=== PATIENT | female | born 1965 | race Caucasian/White ===

== ENCOUNTER 2017-10-02 12:09 | Emergency (ER) | payer BC, SELFPAY ==
[~2017-10-02 12:09] MED LIST: ISOVUE-370 76%-LOCM 1 ML ONE
[2017-10-02 13:20] LABS: #Eosinphils 0.2 thou/uL (0.0-0.7); #Lymphocytes 1.5 thou/uL (1.20-3.40); #Monocytes 1.3 thou/uL (0.11-0.59); #Neutrophils 14.3 thou/uL (1.40-6.50); %Basophils 0.1 % (0.0-1.0); %Eosinophils 1.4 % (0.0-10.0); %Lymphocytes 8.9 % (21.0-51.0); %Monocytes 7.6 % (0.0-10.0); Hematocrit 49.5 % (36.0-47.0); Mean Platelet Volume 8.1 fL (7.4-10.4); Red Blood Cell (RBC) Count 5.47 mill/uL (4.20-5.40); White Blood Cell (WBC) Count 17.4 thou/uL (4.8-10.8)
[2017-10-02 13:45] LABS: ALT (SGPT) 20 U/L (8-55); AST (SGOT) 14 U/L (5-34); Alkaline Phosphatase 164 U/L (40-150); Anion Gap 12 mmol/L (10-20); BUN (Urea Nitrogen) 12 mg/dL (9.8-20.1); Bilirubin, Total 0.4 mg/dL (0.2-1.2); Calc. Creatinine Clearance 0 mL/min (70-130); Calcium 9.8 mg/dL (7.8-10.44); Carbon Dioxide 25 mmol/L (22-29); Chloride 100 mmol/L (98-107); Estimated GFR-MDRD 47; Globulin 3.3 g/dL (2.4-3.5); Lipase 81 U/L (8-78); Protein, Total 7.5 g/dL (6.0-8.3)
--- NOTE | 2017-10-02 13:46 | RAD ---
PA AND LATERAL CHEST: History: Right sided chest pain, injury. FINDINGS: The heart size is normal. The lungs are well expanded without focal areas of consolidation, pneumotho rax, or pleural effusions. There are mild degenerative changes in the spine. IMPRESSION: No radiographic evidence of acute cardiopulmonary process. POS: OFF
[2017-10-02 13:57] LABS: Bilirubin Negative (Negative); Blood, Urine Negative (Negative); Glucose, Urine (Dipstick) >=1000 mg/dL (Negative); Ketone, Urine Negative (Negative); Nitrite Negative (Negative); Protein, Urine (Dipstick) 30 mg/dL (Neg-Trace); Urobilinogen 0.2 mg/dL (0.2-1.0)
[2017-10-02 14:00] LABS: Bacteria/HPF 1+ HPF (None Seen); Hyaline Casts/LPF 0-3 HYALINE CAST LPF (0-3 Hyaline); RBC/HPF 0-3 HPF (0-3); Squamous Epithelial 0-3 HPF (0-3); WBC/HPF 0-3 HPF (0-3)
[2017-10-02] MEDS ORDERED: Famotidine/PF 20 mg/2ml Vial ONE (15:44)
[2017-10-02] MEDS ORDERED: Dicyclomine 20 MG TAB ONE (15:44)
[2017-10-02 15:57] LABS: Troponin I Less than 0.010 ng/mL (< 0.028)
[2017-10-02] MEDS ORDERED: cloNIDine 0.1 MG TAB ONE (16:17)
--- NOTE | 2017-10-02 16:27 | CT ---
CT OF THE ABDOMEN AND PELVIS WITH IV CONTRAST 10/02/17 INDICATION: Right sided abdominal pain. COMPARISON: None. FINDINGS: The lung bases are clear. There is prominent fatty infiltration of the liver. The gallbladder is surgically absent. Spleen is e nlarged measuring 13.5 cm. The pancreas and adrenal glands are unremarkable. There is a 2.1 cm hypode nse lesion that demonstrates some suggestion of peripheral rim enhancement on the coronal image 97. S maller hypodensity involving the inferior pole of the right kidney measures 1.2 cm and most consisten t with a cyst. There is a normal appendix in the right lower quadrant. The intestines are poorly distended; however, there is the appearance of some wall thickening involving multiple loops of distal jejunum and ileum . The TI; however, appears within normal limits. No drainable fluid collection is evident. Colon is largely decompressed. There is scattered degenerative and osteoarthritic change. IMPRESSION: 1. Suggestion of wall thickening involving multiple loops of distal jejunum and ileum can be see n with an enteritis of possible infectious or inflammatory etiology. Inflammatory bowel disease is fe lt to be less likely but cannot be entirely excluded. 2. Hypodense lesion involving the inferior pole of the left kidney is incompletely characterized . Recommend consideration for a followup CT of the abdomen utilizing renal mass protocol for addition al characterization. 3. Fatty liver with mild splenomegaly. 4. Cholecystectomy. 5. Chronic findings as above. POS: TROY
[2017-10-02] MEDS ORDERED: Insulin Regular 300 UNITS/3 ML VIAL ONE (18:23)
== END 2017-10-02 20:14 | disposition home or self-care (01) ==
LOC: ERS 12:09
DX: E72.51 Non-ketotic hyperglycinemia (principal); R19.7 Diarrhea, unspecified; F41.9 Anxiety disorder, unspecified; F17.210 Nicotine dependence, cigarettes, uncomplicated
CPT/HCPCS: 36415; 36416; 71020; 74177; 80053; 81003; 81015; 82553; 83690; 84484; 85025; 87086; 93005; 96361; 96372; 96374; J1815; S0028

== ENCOUNTER 2018-01-14 03:56 | Emergency (ER) | payer SELFPAY ==
[2018-01-14] MEDS ORDERED: Ketorolac Tromethamine 60 MG/2 ML VIAL ONE (04:35)
== END 2018-01-14 04:58 | disposition home or self-care (01) ==
LOC: ERS 03:56
DX: M54.42 Lumbago with sciatica, left side (principal); F41.9 Anxiety disorder, unspecified; F17.200 Nicotine dependence, unspecified, uncomplicated; Z71.6 Tobacco abuse counseling
CPT/HCPCS: 96372; 99406; J1885

== ENCOUNTER 2018-06-11 16:58 | Emergency (ER) | payer OTHER, SELFPAY ==
[2018-06-11 17:40] LABS: Bilirubin Negative (Negative); Blood, Urine Negative (Negative); Clarity CLEAR (Clear); Glucose, Urine (Dipstick) >=1000 mg/dL (Negative); Leukocyte Small (Negative); Nitrite Negative (Negative); Protein, Urine (Dipstick) 30 mg/dL (Neg-Trace); Specific Gravity, Urine 1.026 (1.002-1.036); Urobilinogen 0.2 mg/dL (0.2-1.0); pH, Urine 5.5 (5.0-9.0)
[2018-06-11 17:44] LABS: Bacteria/HPF 2+ HPF (None Seen); Hyaline Casts/LPF 0-3 HYALINE CAST LPF (0-3 Hyaline); Pathc Cast-AUWi Flag 0.14 (0-2.49); RBC/HPF 0-3 HPF (0-3); Squamous Epithelial 0-3 HPF (0-3); WBC/HPF 21-50 HPF (0-3)
[2018-06-11 18:12] LABS: #Eosinphils 0.3 thou/uL (0.0-0.7); #Monocytes 0.5 thou/uL (0.11-0.59); #Neutrophils 4.6 thou/uL (1.40-6.50); %Basophils 0.4 % (0.0-1.0); %Eosinophils 3.5 % (0.0-10.0); %Lymphocytes 35.2 % (21.0-51.0); %Monocytes 6.4 % (0.0-10.0); %Neutrophils 54.6 % (42.0-75.0); Mean Corpuscular HGB CONC 35.4 g/dL (32.0-36.0); Mean Corpuscular Hemoglobin 31.2 pg (27.0-31.0); Mean Corpuscular Volume 88.1 fL (78.0-98.0); Mean Platelet Volume 7.2 fL (7.4-10.4); Platelet Count 293 thou/uL (130-400); RBC Distribution Width 12.2 % (11.5-14.5); White Blood Cell (WBC) Count 8.4 thou/uL (4.8-10.8)
[2018-06-11 18:36] LABS: ALT (SGPT) 24 U/L (8-55); AST (SGOT) 17 U/L (5-34); Alkaline Phosphatase 117 U/L (40-150); Anion Gap 12 mmol/L (10-20); BUN (Urea Nitrogen) 14 mg/dL (9.8-20.1); Bilirubin, Total 0.3 mg/dL (0.2-1.2); Calc. Creatinine Clearance 0 mL/min (70-130); Calcium 9.4 mg/dL (7.8-10.44); Carbon Dioxide 24 mmol/L (22-29); Chloride 104 mmol/L (98-107); Estimated GFR-MDRD 57; Glucose 261 mg/dL (70-105); Potassium 3.8 mmol/L (3.5-5.1); Sodium 136 mmol/L (136-145)
[2018-06-11] MEDS ORDERED: Ondansetron HCl/PF 4 MG/2 ML Vial ONE (20:17)
[2018-06-11] MEDS ORDERED: Ketorolac Tromethamine 30 MG/ML VIAL ONE (20:17)
[2018-06-11] MEDS ORDERED: cefTRIAXone\\ROCEPHIN 1 GM VIAL ONE (20:45)
[2018-06-11] MEDS ORDERED: Sodium Chloride 0.9% 100 ML ONE (20:46)
--- NOTE | 2018-06-11 20:54 | CT ---
CT ABDOMEN AND PELVIS WITHOUT CONTRAST STONE PROTOCOL 06/11/18 HISTORY: Left flank pain. COMPARISON: CT abdomen and pelvis 10/02/17. FINDINGS: Partially calcified granuloma right lung base. No pericardial effusion. Mild diverticular disease of the sigmoid colon without active current inflammation. Prior cholecystec kimberly. Small appendiceal stump is present. No nephroureterolithiasis or hydroureteronephrosis. No secondary evidence of a recently passed stone. There is a hypodensity inferior pole left kidney not definitively a cyst. IMPRESSION: 1. No acute intra-abdominal abnormality. No nephroureterolithiasis or hydroureteronephrosis. No secondary evidence of a recently passed stone. 2. Hypodensity inferior pole left kidney not definitively a cyst. Nonemergent renal protocol CT or MRI recommended. POS: CET
== END 2018-06-11 21:44 | disposition home or self-care (01) ==
LOC: ERS 16:58
DX: N39.0 Urinary tract infection, site not specified (principal); E11.9 Type 2 diabetes mellitus without complications; I10 Essential (primary) hypertension; Z79.4 Long term (current) use of insulin; Z79.899 Other long term (current) drug therapy
CPT/HCPCS: 36415; 36416; 74176; 80053; 81003; 81015; 83690; 85025; 87077; 87086; 96365; 96375; J0696; J1885; J2405; J7050

== ENCOUNTER 2021-06-16 04:40 | Emergency (ER) | payer SELFPAY ==
[2021-06-16] MEDS ORDERED: Ondansetron PF 4 MG/2 ML Vial ONE (05:29)
[2021-06-16 05:45] LABS: #Eosinphils 0.2 thou/uL (0.0-0.7); #Lymphocytes 1.2 thou/uL (1.20-3.40); #Monocytes 0.5 thou/uL (0.11-0.59); #Neutrophils 10.9 thou/uL (1.40-6.50); %Basophils 0.3 % (0.0-1.0); %Eosinophils 1.2 % (0.0-10.0); %Lymphocytes 9.7 % (21.0-51.0); %Monocytes 3.6 % (0.0-10.0); %Neutrophils 85.2 % (42.0-75.0); Hemoglobin 14.6 g/dL (12.0-16.0); Mean Corpuscular HGB CONC 34.8 g/dL (32.0-36.0); Mean Corpuscular Hemoglobin 30.5 pg (27.0-31.0); Mean Corpuscular Volume 87.6 fL (78.0-98.0); Mean Platelet Volume 7.7 fL (7.4-10.4); Platelet Count 317 thou/uL (130-400); RBC Distribution Width 12.2 % (11.5-14.5); Red Blood Cell (RBC) Count 4.79 mill/uL (4.20-5.40); White Blood Cell (WBC) Count 12.8 thou/uL (4.8-10.8)
[2021-06-16 06:24] LABS: ALT (SGPT) 41 U/L (8-55); AST (SGOT) 31 U/L (5-34); Albumin 3.8 g/dL (3.5-5.0); Alkaline Phosphatase 123 U/L (40-110); Anion Gap 13 mmol/L (10-20); BUN (Urea Nitrogen) 14 mg/dL (9.8-20.1); Bilirubin, Total 0.5 mg/dL (0.2-1.2); Calc. Creatinine Clearance 0 mL/min (70-130); Calcium 9.6 mg/dL (7.8-10.44); Carbon Dioxide 27 mmol/L (22-29); Chloride 100 mmol/L (98-107); Globulin 3.7 g/dL (2.4-3.5); Glucose 319 mg/dL (70-105); Lipase 32 U/L (8-78); Potassium 4.6 mmol/L (3.5-5.1); Protein, Total 7.5 g/dL (6.0-8.3); Sodium 135 mmol/L (136-145)
[2021-06-16] MEDS ORDERED: Promethazine HCl 25 MG/ML VIAL ONE (08:06)
== END 2021-06-16 09:04 | disposition home or self-care (01) ==
LOC: ERS 04:40
DX: R11.2 Nausea with vomiting, unspecified (principal); E11.9 Type 2 diabetes mellitus without complications; I10 Essential (primary) hypertension; F17.210 Nicotine dependence, cigarettes, uncomplicated; Z79.84 Long term (current) use of oral hypoglycemic drugs; Z79.899 Other long term (current) drug therapy
CPT/HCPCS: 71045; 80053; 83690; 84484; 85025; 93005; 96374; 96375; J2405; J2550

== ENCOUNTER 2021-07-04 18:27 | Emergency (ER) | payer SELFPAY ==
[2021-07-04 19:46] LABS: #Lymphocytes 1.6 thou/uL (1.20-3.40); #Monocytes 0.6 thou/uL (0.11-0.59); #Neutrophils 3.2 thou/uL (1.40-6.50); %Basophils 0.1 % (0.0-1.0); %Eosinophils 0.1 % (0.0-10.0); %Lymphocytes 29.4 % (21.0-51.0); %Monocytes 11.3 % (0.0-10.0); %Neutrophils 59.2 % (42.0-75.0); Hemoglobin 14.9 g/dL (12.0-16.0); Mean Corpuscular HGB CONC 33.2 g/dL (32.0-36.0); Mean Corpuscular Hemoglobin 29.2 pg (27.0-31.0); Mean Corpuscular Volume 87.9 fL (78.0-98.0); Mean Platelet Volume 8.1 fL (7.4-10.4); Platelet Count 219 thou/uL (130-400); RBC Distribution Width 12.1 % (11.5-14.5); Red Blood Cell (RBC) Count 5.11 mill/uL (4.20-5.40); White Blood Cell (WBC) Count 5.4 thou/uL (4.8-10.8)
[2021-07-04 20:10] LABS: ALT (SGPT) 105 U/L (8-55); AST (SGOT) 102 U/L (5-34); Albumin 3.9 g/dL (3.5-5.0); Alkaline Phosphatase 104 U/L (40-110); Anion Gap 13 mmol/L (10-20); BUN (Urea Nitrogen) 15 mg/dL (9.8-20.1); Bilirubin, Total 0.4 mg/dL (0.2-1.2); Calc. Creatinine Clearance 0 mL/min (70-130); Calcium 8.9 mg/dL (7.8-10.44); Carbon Dioxide 24 mmol/L (22-29); Chloride 102 mmol/L (98-107); Globulin 2.9 g/dL (2.4-3.5); Glucose 233 mg/dL (70-105); Lipase 54 U/L (8-78); Potassium 4.4 mmol/L (3.5-5.1); Protein, Total 6.8 g/dL (6.0-8.3); Sodium 135 mmol/L (136-145)
== END 2021-07-04 20:43 | disposition left against medical advice (07) ==
LOC: ERS 18:27
DX: Z53.21 Procedure and treatment not carried out due to patient leaving prior to being seen by health care provider (principal)
CPT/HCPCS: 36415; 80053; 83690; 85025

== ENCOUNTER 2021-07-05 21:16 | Emergency (ER) | payer SELFPAY ==
[2021-07-05 22:21] LABS: #Lymphocytes 1.7 thou/uL (1.20-3.40); #Monocytes 0.5 thou/uL (0.11-0.59); #Neutrophils 2.7 thou/uL (1.40-6.50); %Basophils 0.4 % (0.0-1.0); %Eosinophils 0.1 % (0.0-10.0); %Lymphocytes 33.5 % (21.0-51.0); %Monocytes 10.3 % (0.0-10.0); %Neutrophils 55.6 % (42.0-75.0); Hemoglobin 14.3 g/dL (12.0-16.0); Mean Corpuscular HGB CONC 32.5 g/dL (32.0-36.0); Mean Corpuscular Hemoglobin 28.8 pg (27.0-31.0); Mean Corpuscular Volume 88.5 fL (78.0-98.0); Mean Platelet Volume 8.6 fL (7.4-10.4); Platelet Count 207 thou/uL (130-400); RBC Distribution Width 12.2 % (11.5-14.5); Red Blood Cell (RBC) Count 4.98 mill/uL (4.20-5.40); White Blood Cell (WBC) Count 4.9 thou/uL (4.8-10.8)
[2021-07-05] MEDS ORDERED: Ondansetron PF 4 MG/2 ML Vial ONE (22:21)
[2021-07-05 22:42] LABS: ALT (SGPT) 97 U/L (8-55); AST (SGOT) 107 U/L (5-34); Albumin 3.8 g/dL (3.5-5.0); Alkaline Phosphatase 103 U/L (40-110); Anion Gap 16 mmol/L (10-20); BUN (Urea Nitrogen) 21 mg/dL (9.8-20.1); Bilirubin, Total 0.4 mg/dL (0.2-1.2); Calc. Creatinine Clearance 0 mL/min (70-130); Calcium 8.5 mg/dL (7.8-10.44); Carbon Dioxide 22 mmol/L (22-29); Chloride 102 mmol/L (98-107); Globulin 2.9 g/dL (2.4-3.5); Glucose 208 mg/dL (70-105); Lipase 65 U/L (8-78); Potassium 4.3 mmol/L (3.5-5.1); Protein, Total 6.7 g/dL (6.0-8.3); Sodium 136 mmol/L (136-145)
[2021-07-05 23:30] LABS: SARS-CoV-2 NAA Rapid Test DETECTED (NotDetected)
== END 2021-07-06 00:57 | disposition home or self-care (01) ==
LOC: ERS 21:16
DX: U07.1 COVID-19 (principal)
CPT/HCPCS: 0240U; 36415; 71045; 80053; 83690; 85025; 93005; 94760; 96374; J2405